=== PATIENT | female | born 2000 | race Two or more races ===

== ENCOUNTER 2023-07-25 22:56 | Emergency (ER) | payer BC, OTHER ==
[2023-07-26] MEDS ORDERED: Famotidine 20 MG Tab PO ONE (00:16)
[2023-07-26] MEDS ORDERED: diphenhydrAMINE 25 MG Cap PO ONE (00:16)
== END 2023-07-26 02:04 | disposition home or self-care (01) ==
LOC: JD.ED 22:56
DX: L30.9 Dermatitis, unspecified (principal)
CPT/HCPCS: 99282; A9270